=== PATIENT | female | born 1940 | race Caucasian/White ===

== ENCOUNTER 2021-01-08 09:32 | Outpatient (CLI) | payer MEDICARE, BC | END 2021-01-08 09:33 | disposition home or self-care (01) | LOC: TBSIIMAG 09:32 | PROVIDERS: ATTEND Neurological Surgery | DX: S32.019A Unspecified fracture of first lumbar vertebra, initial encounter for closed fracture (principal); S22.089A Unspecified fracture of T11-T12 vertebra, initial encounter for closed fracture; M43.16 Spondylolisthesis, lumbar region | CPT/HCPCS: 72100 ==